=== PATIENT | male | born 1985 | race Caucasian/White ===

== ENCOUNTER 2016-09-30 10:11 | Emergency (ER) | payer BC ==
[2016-09-30 12:15] VITALS: BP 129/79
--- NOTE | 2016-09-30 12:57 | UC ---
Knee Pain HPI - HPI Summary HPI Summary: 1) Pain in R knee starting about 2.5 months ago, got worse for 2 weeks then knee "cracked" while he was in bed and it felt better for a couple months and has gotten worse again. Pain on the front of knee and cannot full extend leg with weight on it. 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 - History of Current Complaint Chief Complaint: UCLowerExtremity Stated Complaint: RIGHT KNEE,RT SHOULDER Time Seen by Provider: 09/30/16 12:36 Hx Obtained From: Patient Onset/Duration: Lasting Weeks Severity Initially: Mild Severity Currently: Moderate Character: Dull, Aching, Stiffness Aggravating Factor(s): Weight Bearing Alleviating Factor(s): Rest Associated Signs And Symptoms: Positive: Negative Able to Bear Weight: Yes - Allergies/Home Medications Allergies/Adverse Reactions: Allergies Allergy/AdvReac Type Severity Reaction Status Date / Time No Known Allergies Allergy Verified 03/02/15 14:08 Home Medications: Home Medications Acetaminophen [Tylenol] 325 mg PO Q4H PRN 09/30/16 [History Confirmed 09/30/16] PMH/Surg Hx/FS Hx/Imm Hx Endocrine History Of: Denies: Diabetes, Thyroid Disease Cardiovascular History Of: Reports: Hypertension Denies: Cardiac Disorders Respiratory History Of: Reports: Asthma Denies: COPD GI/ History Of: Reports: Ulcer - Surgical History Surgical History: Yes Surgery Procedure, Year, and Place: Appendectomy, ~1998, [facility] - Family History Known Family History: Positive: Hypertension - Social History Occupation: Employed Full-time Lives: With Family Alcohol Use: Occasionally Substance Use Type: None Substance Use Comment - Amount & Last Used: 2-3 cans of Red Bull and 4-5 cups of coffee a day Smoking Status (MU): Former Smoker Type: eCigarettes Amount Used/How Often: 1 1/2 cans a week Length of Time of Smoking/Using Tobacco: 13 Years Have You Smoked in the Last Year: Yes Review of Systems Constitutional: Negative Skin: Negative Eyes: Negative ENT: Negative Respiratory: Negative Cardiovascular: Negative Gastrointestinal: Negative Genitourinary: Negative Motor: Negative Neurovascular: Negative Musculoskeletal: Arthralgia, Decreased ROM - R shoulder Neurological: Negative Psychological: Negative All Other Systems Reviewed And Are Negative: Yes Physical Exam Triage Information Reviewed: Yes Appearance: Well-Appearing, Well-Nourished Vital Signs: Initial Vital Signs Temp 97.8 F 09/30/16 11:21 Pulse 60 09/30/16 11:21 Resp 16 09/30/16 11:21 BP 127/81 09/30/16 11:21 Pulse Ox 100 09/30/16 11:21 Vital Signs Reviewed: Yes Eye Exam: Normal Eyes: Positive: Conjunctiva Clear ENT Exam: Normal ENT: Positive: Normal ENT inspection, Hearing grossly normal, Pharynx normal, TMs normal Dental Exam: Normal Neck exam: Normal Neck: Positive: Supple, Nontender, No Lymphadenopathy Respiratory Exam: Normal Respiratory: Positive: Chest non-tender, Lungs clear, Normal breath sounds, No respiratory distress, No accessory muscle use Cardiovascular Exam: Normal Cardiovascular: Positive: RRR, No Murmur Musculoskeletal: Positive: ROM Limited @ - R shoulder difficulty getting overhead, Other: - pain with full extension of R knee, pain on anterior knee, knee "feels out of place." Neurological Exam: Normal Neurological: Positive: Alert Psychological Exam: Normal Skin Exam: Normal Knee Pain Course/Dx - Differential Dx/Diagnosis Provider Diagnoses: Chronic R knee pain. R shoulder tendinitis. Elevated blood pressure due to pain Discharge - Discharge Plan Condition: Stable Disposition: HOME Prescriptions: Meloxicam [Mobic] 15 mg PO DAILY #7 tab Patient Education Materials: Knee Pain (ED), Tendinitis (ED) Referrals: Diego Poon NP [Primary Care Provider] - Genoveva Koenig MD [Medical Doctor] - Additional Instructions: As much as possible, try to avoid activities that provoke pain. Please arrange for follow-up with the orthopedist.
--- NOTE | 2016-09-30 13:29 | RAD ---
HISTORY: Right knee pain COMPARISONS: None VIEWS: 4, Frontal, lateral, axial, and oblique views of the right knee FINDINGS: BONE DENSITY: Normal. BONES: There is no displaced fracture. JOINTS: There is no arthropathy. ALIGNMENT: There is no dislocation. SOFT TISSUES: Unremarkable. OTHER FINDINGS: None. IMPRESSION: NO ACUTE OSSEOUS INJURY. IF SYMPTOMS PERSIST, RECOMMEND REPEAT IMAGING.
--- NOTE | 2016-09-30 13:29 | RAD ---
HISTORY: Right shoulder pain COMPARISONS: None VIEWS: 3, Frontal internal rotation, external rotation, and outlet views of the right shoulder FINDINGS: BONE DENSITY: Normal. BONES: There is no displaced fracture. JOINTS: There is no arthropathy. ALIGNMENT: There is no dislocation. SOFT TISSUES: Unremarkable. OTHER FINDINGS: None. IMPRESSION: NO ACUTE OSSEOUS INJURY. IF SYMPTOMS PERSIST, RECOMMEND REPEAT IMAGING.
== END 2016-09-30 13:37 | disposition home or self-care (01) ==
LOC: UCEAST 10:11
DX: M25.561 Pain in right knee (principal); M75.91 Shoulder lesion, unspecified, right shoulder; I10 Essential (primary) hypertension; J45.909 Unspecified asthma, uncomplicated; Z87.891 Personal history of nicotine dependence
CPT/HCPCS: 99212; G0463

== ENCOUNTER 2017-07-17 11:23 | Emergency (ER) | payer BC | END 2017-07-17 13:14 | disposition left against medical advice (07) | LOC: UCCORT 11:23 | DX: R05 Cough (principal); R53.83 Other fatigue; Z53.21 Procedure and treatment not carried out due to patient leaving prior to being seen by health care provider ==

== ENCOUNTER 2018-04-04 10:48 | Emergency (ER) | payer BC ==
[2018-04-04 11:13] VITALS: BP 177/88
[2018-04-04] MEDS ORDERED: Ibuprofen TAB* 600 MG PO ONE (11:24)
--- NOTE | 2018-04-04 11:40 | UC ---
Headache HPI - HPI Summary HPI Summary: 33 yo M, hx of yearly sinus infections, p/w 6 days of facial pain. L facial pain /fullness was preceded by "migraine", chills, subjective fever and fatigue. Those symptoms have resolved, however facial pain persists. He's been taking sudaphed, which "dried up" his rhinorrhea, but worsened the facial pain. Also has chest congestion but no SOB, CP. - History Of Current Complaint Chief Complaint: UCGeneralIllness Stated Complaint: SINUSES Time Seen by Provider: 04/04/18 11:14 Hx Obtained From: Patient Onset/Duration: Gradual Onset, Lasting Days Pain Intensity: 6 Character: Dull, Throbbing Location of Headache: Diffuse Associated Signs And Symptoms: Positive: Nausea. Negative: Vomiting, Neck Pain , Neck Stiffness - Allergies/Home Medications Allergies/Adverse Reactions: Allergies Allergy/AdvReac Type Severity Reaction Status Date / Time No Known Allergies Allergy Verified 04/04/18 11:09 PMH/Surg Hx/FS Hx/Imm Hx - Surgical History Surgical History: Yes Surgery Procedure, Year, and Place: Appendectomy, ~1998, [facility] - Family History Known Family History: Positive: Hypertension - Social History Alcohol Use: Occasionally Substance Use Type: None Substance Use Comment - Amount & Last Used: 2-3 cans of Red Bull and 4-5 cups of coffee a day Smoking Status (MU): Heavy Every Day Tobacco Smoker Type: eCigarettes Amount Used/How Often: 1 1/2 cans a week Length of Time of Smoking/Using Tobacco: 13 Years Have You Smoked in the Last Year: Yes Review of Systems Skin: Negative Eyes: Negative Respiratory: Negative Gastrointestinal: Negative Neurological: Headache All Other Systems Reviewed And Are Negative: Yes Physical Exam Triage Information Reviewed: Yes Appearance: Well-Appearing, No Pain Distress, Well-Nourished Vital Signs: Initial Vital Signs Temp 98.5 F 04/04/18 11:06 Pulse 70 04/04/18 11:06 Resp 16 04/04/18 11:06 BP 177/88 04/04/18 11:06 Pulse Ox 100 04/04/18 11:06 Vital Signs Reviewed: Yes Eyes: Positive: Conjunctiva Clear Respiratory: Positive: Lungs clear, Normal breath sounds, No respiratory distress, No accessory muscle use Neurological: Positive: Alert Psychological Exam: Normal Psychological: Positive: Normal Response To Family Skin Exam: Normal Headache Course/Dx - Differential Dx/Diagnosis Differential Diagnosis/HQI/PQRI: Other - sinusitis, URI, migraine, tension MULLEN Provider Diagnoses: sinusitis Discharge - Sign-Out/Discharge Documenting (check all that apply): Patient Departure All imaging exams completed and their final reports reviewed: No Studies - Discharge Plan Condition: Stable Disposition: HOME Prescriptions: Amoxicillin PO (*) [Amoxicillin 500 MG CAP*] 500 mg PO TID 7 Days #21 cap Patient Education Materials: Sinusitis (ED) Referrals: No Primary Care Phys,NOPCP [Primary Care Provider] - Additional Instructions: Be sure to continue to take ibuprofen and apply warm compresses to affected sinus. If symptoms do not improve by tomorrow despite ibuprofen and warm compresses, begin antibiotic. - Billing Disposition and Condition Condition: STABLE Disposition: Home
== END 2018-04-04 12:02 | disposition home or self-care (01) ==
LOC: UCCORT 10:48
DX: J32.9 Chronic sinusitis, unspecified (principal); F17.290 Nicotine dependence, other tobacco product, uncomplicated
CPT/HCPCS: 99212; A9270-GY; G0463

== ENCOUNTER 2018-07-16 12:20 | Emergency (ER) | payer BC ==
--- NOTE | 2018-07-16 13:54 | ED ---
GI/ HPI - HPI Summary HPI Summary: Pt is a 33 y/o M presenting to the ED with a chief complaint of abd pain located in the epigastric region, described as sharp, onset a while ago. Pt reports constant heartburn, bright red blood in stool onset 07/14/18, painful bowel movements since then, and dizziness. He cannot sit or put any pressure on his bottom without pain. - History of Current Complaint Chief Complaint: EDAbdPain Time Seen by Provider: 07/16/18 13:42 Stated Complaint: GENERAL Hx Obtained From: Patient Onset/Duration: Started Days Ago, Still Present Timing: Constant, Lasting Days Severity: Moderate Current Severity: Moderate Vaginal Bleeding Description: Bright Red Pain Intensity: 6 Location of Pain: Epigastric, Rectal Pain Characteristics: Sharp, Burning Associated Signs and Symptoms: Positive: Dizziness, Rectal Pain, Bright Red Blood w/Stool Aggravating Factor(s): Bowel Movement, Sitting Alleviating Factor(s): Nothing - Allergy/Home Medications Allergies/Adverse Reactions: Allergies Allergy/AdvReac Type Severity Reaction Status Date / Time No Known Allergies Allergy Verified 07/16/18 12:27 Home Medications: Home Medications Calcium Carbonate CHEW TAB* [Tums*] 500 mg PO BID 07/16/18 [History Confirmed ] PMH/Surg Hx/FS Hx/Imm Hx Previously Healthy: Yes Endocrine/Hematology History: Denies: Hx Diabetes, Hx Thyroid Disease Cardiovascular History: Reports: Hx Hypertension - no meds Respiratory History: Reports: Hx Asthma Denies: Hx Chronic Obstructive Pulmonary Disease (COPD) GI History: Reports: Hx Ulcer - Surgical History Surgery Procedure, Year, and Place: Appendectomy, ~1998, [facility] Infectious Disease History: No Infectious Disease History: Denies: Hx Clostridium Difficile, Hx Hepatitis, Hx Human Immunodeficiency Virus (HIV), Hx of Known/Suspected MRSA, Hx Shingles, Hx Tuberculosis, Hx Known/ Suspected VRE, Hx Known/Suspected VRSA, History Other Infectious Disease, Traveled Outside the [place] in Last 30 Days - Family History Known Family History: Positive: Hypertension - Social History Alcohol Use: Occasionally Substance Use Type: Reports: None Substance Use Comment - Amount & Last Used: 2-3 cans of Red Bull and 4-5 cups of coffee a day Smoking Status (MU): Heavy Every Day Tobacco Smoker Type: eCigarettes Amount Used/How Often: 1 1/2 cans a week Length of Time of Smoking/Using Tobacco: 13 Years Have You Smoked in the Last Year: Yes Review of Systems Negative: Fever Positive: Abdominal Pain, Other - blood in stool, painful stools All Other Systems Reviewed And Are Negative: Yes Physical Exam - Summary Physical Exam Summary: Appearance: The patient is well-nourished in no acute distress and in no acute pain. Skin: The skin is warm and dry and skin color reflects adequate perfusion. HEENT: The head is normocephalic and atraumatic. The pupils are equal and reactive. The conjunctivae are clear and without drainage. Nares are patent and without drainage. Mouth reveals moist mucous membranes and the throat is without erythema and exudate. The external ears are intact. The ear canals are patent and without drainage. The tympanic membranes are intact. Neck: The neck is supple with full range of motion and non-tender. There are no carotid bruits. There is no neck vein distension. Respiratory: Chest is non-tender. Lungs are clear to auscultation and breath sounds are symmetrical and equal. Cardiovascular: Heart is regular rate and rhythm. There is no murmur or rub auscultated. There is no peripheral edema and pulses are symmetrical and equal. Abdomen: Epigastric tenderness. There are normal bowel sounds heard in all four quadrants and there is no organomegaly palpated. Musculoskeletal: There is no back tenderness noted. Extremities are non-tender with full range of motion. There is good capillary refill. There is no peripheral edema or calf tenderness elicited. Neurological: Patient is alert and oriented to person, place and time. The patient has symmetrical motor strength in all four extremities. Cranial nerves are grossly intact. Deep tendon reflexes are symmetrical and equal in all four extremities. Psychiatric: The patient has an appropriate affect and does not exhibit any anxiety or depression. Rectal: Gross blood in rectum, no internal or external hemorrhoids appreciated. Minimal cooperation to rectal exam. Triage Information Reviewed: Yes Vital Signs On Initial Exam: Initial Vitals Temp Pulse Resp BP Pulse Ox 98.8 F 91 16 165/109 98 07/16/18 12:23 07/16/18 12:23 07/16/18 12:23 07/16/18 12:23 07/16/18 12:23 Vital Signs Reviewed: Yes Diagnostics - Vital Signs Vital Signs Temp Pulse Resp BP Pulse Ox 07/16/18 12:23 98.8 F 91 16 165/109 98 - Laboratory Result Diagrams: 07/16/18 14:08 07/16/18 14:08 Lab Statement: Any lab studies that have been ordered have been reviewed, and results considered in the medical decision making process. GIGU Course/Dx - Course Course Of Treatment: Mr Hodges presented with a concern that he has had epigastric pain for a very long time without medical care. He did see a doctor once and he was told to stop smoking and drinking and to change his diet. He has not done any of those things and does not see a doctor routinely. In the last 3 days she's developed some bright red blood per rectum and painful bowel movements. He denies any melena or black bowel movements. On exam he is tender in the epigastrium. There is blood perianally. He is not very cooperative to a rectal exam there are no external hemorrhoids and with a very limited internal exam I don't feel any internal hemorrhoids. I doubt that this blood is related to his epigastric pain as he has not dropped his H&H and his BUN is normal. I spoke with Dr. Goodwin who recommended stool softeners and follow up with PCP. I will refer him to [facility] and also start him on Prilosec. - Diagnoses Provider Diagnoses: Epigastric abdominal pain, Rectal bleeding Discharge - Sign-Out/Discharge Documenting (check all that apply): Patient Departure Patient Received Moderate/Deep Sedation with Procedure: No - Discharge Plan Condition: Stable Disposition: HOME Prescriptions: Docusate CAP* [Colace Cap*] 100 mg PO DAILY #20 cap Omeprazole CAP (NF) [Prilosec CAP* 20 MG] 20 mg PO BID #20 cap. Referrals: [facility] [Outside] Additional Instructions: Please follow up with [facility] this coming week. Take your prescription medications as instructed. Return to the ED with any new or worsening symptoms. - Billing Disposition and Condition Condition: STABLE Disposition: Home - Attestation Statements Document Initiated by Scribe: Yes Documenting Scribe: Holley Marsh Provider For Whom Azaliaibe is Documenting (Include Credential): Rai Leigh MD. Scribe Attestation: IHolley, scribed for Rai Leigh MD. on 07/16/18 at 1947. Scribe Documentation Reviewed: Yes Provider Attestation: The documentation as recorded by the scribe, Holley Marsh accurately reflects the service I personally performed and the decisions made by me, Rai Leigh MD. Status of Scribe Document: Viewed Consult Consult: [id number] - Spoke with Dr. Goodwin of gastroenterology, who recommended the patient instead follow up with [facility] [place].
[2018-07-16 14:16] LABS: ABS Basophils 0 10^3/ul (0-0.2); ABS Eosinophils 0.2 10^3/ul (0-0.6); ABS Lymphocytes 2.2 10^3/ul (1.0-4.8); ABS Monocytes 0.6 10^3/ul (0-0.8); ABS Neutrophils 3.8 10^3/ul (1.5-7.7); ABS Nucleated RBC 0 10^3/ul; Eosinophil % 2.7 %; Hematocrit 47 % (42-52); Hemoglobin 15.7 g/dl (14.0-18.0); Lymphocyte % 32.7 %; Mean Corpuscular HGB Conc 33 g/dl (31-36); Mean Corpuscular Hemoglobin 28 pg (27-31); Mean Corpuscular Volume 85 fL (80-94); Mean Platelet Volume 8.4 fL (7.4-10.4); Nucleated Red Blood Cells % 0; Platelet Count 210 10^3/ul (150-450); Red Blood Count 5.57 10^6/ul (4.00-5.40); Red Cell Distribution Width 14 % (10.5-15); White Blood Count 6.8 10^3/ul (3.5-10.8)
[2018-07-16 14:24] LABS: INR 0.87 (0.77-1.02)
[2018-07-16 14:47] LABS: Albumin 4.2 g/dL (3.2-5.2); Albumin/Globulin Ratio 1.9 (1-3); BUN/Creatinine Ratio 17.8 (8-20); C Reactive Protein 1.76 mg/L (<8.01); Calcium 8.9 mg/dL (8.6-10.3); EGFR African American 117.6 (>60); EGFR Non-African American 97.2 (>60); Globulin 2.2 g/dL (2-4); Potassium 4.2 mmol/L (3.5-5.0); Total Bilirubin 0.2 mg/dL (0.2-1.0); Total Protein 6.4 g/dL (6.4-8.9)
[2018-07-16 16:42] VITALS: BP 159/96
== END 2018-07-16 16:43 | disposition home or self-care (01) ==
LOC: ED 12:20
DX: R10.13 Epigastric pain (principal); K62.5 Hemorrhage of anus and rectum; R42 Dizziness and giddiness; F17.220 Nicotine dependence, chewing tobacco, uncomplicated
CPT/HCPCS: 36415; 80053; 83605; 83690; 85025; 85610; 86140; 99282